=== PATIENT | female | born 2000 | race Caucasian/White ===

== ENCOUNTER 2020-01-21 22:36 | Emergency (ER) | payer MEDICAID ==
[2020-01-21] MEDS ORDERED: Acetaminophen 500 MG Tab PO ONE (23:21)
--- NOTE | 2020-01-22 00:59 | CR ---
Indication: Right-sided chest pain Technique: Chest 1 view Comparison: None Findings/Impression: Cardiovascular and mediastinum: Heart size and vasculature are normal in caliber and appearance. Lungs and pleural space: Lungs are clear. No sign of infiltrate or mass. No sign of pleural effusion. No pneumothorax. Bones and soft tissues: No acute findings. Dictated by Jimy Burrell MD @ Jan 22 2020 12:56AM Signed by Dr. Jimy Burrell @ Jan 22 2020 12:57AM
--- NOTE | 2020-01-22 01:03 | EDM.PDOC ---
ED HPI GENERAL MEDICAL PROBLEM - General Chief Complaint: Chest Pain Stated Complaint: CHEST PAIN Time Seen by Provider: 01/21/20 23:54 - History of Present Illness INITIAL COMMENTS - FREE TEXT/NARRATIVE: CHIEF COMPLAINT(S): Chest pain HISTORY OF PRESENT ILLNESS: This is a 19-year-old woman without any significant past medical history who is approximately 18 weeks who comes to the emergency department with a chief complaint of chest pain. The patient states that the chest pain is located on the right side of her chest in the upper region and radiates to her armpit. She describes the pain as 4 out of 10 and achy in nature. She denies any radiation of this pain to her back or other side of her chest. She denies any associated symptoms such as shortness of breath, diaphoresis or nausea. She states the pain is worse with movement. She denies any rash. She denies any nipple discharge. She states that she did take some Tylenol at home which did not improve the pain. She states that her mother told her to come into the emergency department. In regards to her she is approximately 18 weeks and has been seen by an bisque kiln drawer. She denies any vaginal bleeding, dysuria, abdominal pain. She denies any recent travel, recent surgery, prior history of DVT or PE. REVIEW OF SYSTEMS: Constitutional: Denies fever, chills. Eyes: Denies eye pain Ears, Nose, Mouth, & Throat: Denies earache Cardiovascular: Positive for chest pain Respiratory: Denies shortness of breath Gastrointestinal: Denies Nausea, vomiting, diarrhea, hematochezia. Genitourinary: Denies hematuria Skin:Denies a rash Neurological: Denies blurred vision, numbness, tingling, weakness Psychiatric: Denies depression PAST MEDICAL HISTORY: As per history of present illness and as reviewed below otherwise noncontributory. SURGICAL HISTORY: As per history of present illness and as reviewed below otherwise noncontributory. LMP: Approximately 18 weeks ago SOCIAL HISTORY: As per history of present illness and as reviewed below otherwise noncontributory. FAMILY HISTORY: As per history of present illness and as reviewed below otherwise noncontributory. EXAMINATION OF ORGAN SYSTEMS/BODY AREAS: Constitutional: Blood pressure was 107/64, heart rate 78, respiratory rate 16 with an oxygen saturation of 97% on room air. Temperature 36.4 General: Overall well-appearing woman who is in no acute distress Psychiatric: Appropriate mood and affect. Eyes: No scleral icterus or conjunctival erythema ENMT: Moist mucous membranes. No pharyngeal erythema Cardiovascular: Regular, rate, and rythym. No gallops, murmurs, or rubs. Bilateral upper extremity pulses symmetric and intact. No peripheral edema. No JVD. Breast: Breast examination was performed with KIMBERLY Yin. The patient had tenderness to palpation in her upper right chest wall and lateral side of her breast. There was no drainage from the nipple no overlying cellulitis. Patient did have cystic breast but there was no obvious fluctuance or area of abscess. Respiratory: Lungs clear to auscultation bilaterally. No wheezes, rales, or rhonchi. Gastrointestinal: Soft, non-tender, non-distended. Normoactive bowel sounds Genitourinary: No suprapubic tenderness Musculoskeletal: Normal range of motion. Skin: No lesions or abrasions. Neurological: Alert, GCS 15 MEDICAL DECISION MAKING AND COURSE IN THE ED WITH INTERPRETATION/REVIEW OF DIAGNOSTIC STUDIES: This is a 19-year-old woman who is approximately 18 weeks who comes to the emergency department with right upper chest wall pain who overall appears well. At this time I do suspect that this is probably secondary to breast changes during . There is no evidence of infection. We did obtain a screening EKG which did not reveal any acute signs of ischemia. Will obtain a chest x-ray to evaluate for any signs of pneumonia. Patient did take Tylenol prior to arrival and requested no additional pain medication. I did discuss with her at this time that this could be secondary to musculoskeletal strain versus -induced breast changes. I discussed the use of a heating pad to the area and the use of Tylenol for pain relief. She did express understanding. Twelve-lead EKG interpreted by myself. Normal sinus rhythm at a rate of 77beats per minute. Normal axis. [place] interval is 156ms. QRS duration is 86ms. ST segments are normal without elevations or depressions. No Q waves present. Hypertrophy not noted. No prior EKGs in our system. Interpretation: Normal sinus rhythm The radiological images were viewed by myself along with reading the report from the radiologist. Chest x-ray does not reveal an acute cardiopulmonary process PERC Rule Age (>/=50): No (0) HR (>/=100): No (0) SaO2 on RA <95%: No (0) Unilateral Leg Swelling: No (0) Hemoptysis: No (0) Surgery/Trauma in last month requiring general anesthesia: No (0) Prior PE or DVT: : No (0) Hormone Use: No (0) PERC negative Since patient is PERC negative and pre-test probability <15%, there is no need for more intensive workup, <2% chance of PE At this time I did discuss results with the patient. She is stable for discharge. She is to return for any new or worsening symptoms. DISPOSITION: The patient was discharged home in stable condition. The patient will follow up with primary care physician and bisque kiln drawer. CONDITION: Fair PROCEDURES: None FINAL IMPRESSION(S)/DIAGNOSES: 1. Acute atypical chest pain likely musculoskeletal versus breast changes during Poli Olsen M.D. Right Upper Chest Pain Score (Numeric/FACES): 8 - Related Data Allergies Allergy/AdvReac Type Severity Reaction Status Date / Time Sulfa (Sulfonamide Allergy Hives Verified 01/21/20 22:49 Antibiotics) Home Meds: Home Meds Acetaminophen [Tylenol Extra Strength] 1,000 mg PO 01/21/20 [History] Pnv No.103/Folic/Om3s/Fish Oil [ Gummies] DAILY 01/21/20 [History] Past Medical History - Past Health History Medical/Surgical History: Denies Medical/Surgical History Social & Family History - Tobacco Use Tobacco Use Status *Q: Never Tobacco User Second Hand Smoke Exposure: Yes - Caffeine Use Caffeine Use: Reports: Coffee, Soda - Recreational Drug Use Recreational Drug Use: No ED ROS GENERAL - Review of Systems Review Of Systems: See Below ED EXAM, GENERAL - Physical Exam Exam: See Below Course - Vital Signs Last Recorded V/S: Last Vital Signs Temp 36.4 C 01/21/20 22:47 Pulse 84 01/22/20 01:30 Resp 18 01/22/20 01:30 BP 106/54 L 01/22/20 01:30 Pulse Ox 99 01/22/20 01:30 - Orders/Labs/Meds Meds: Medications Discontinued Medications Generic Name Dose Route Start Last Admin Trade Name Freq PRN Reason Stop Dose Admin Acetaminophen 1,000 mg 01/21/20 23:21 01/21/20 23:53 Tylenol Extra Strength PO 01/21/20 23:22 Not Given ONETIME ONE Departure - Departure Time of Disposition: 01:02 Disposition: Home, Self-Care 01 Condition: Fair Clinical Impression: Atypical chest pain - Discharge Information *PRESCRIPTION DRUG MONITORING PROGRAM REVIEWED*: No *COPY OF PRESCRIPTION DRUG MONITORING REPORT IN PATIENT HANS: No Instructions: Nonspecific Chest Pain, Adult, [id number] Referrals: Stephanie Schroeder CNM [Primary Care Provider] - Forms: ED Department Discharge Additional Instructions: The patient is informed of any results of their evaluation and diagnostic workup and all questions are answered. They are given discharge instructions and return precautions. The patient is stable for discharge. The patient states they understand and agree with the plan and that they will return if their symptoms get worse or if they have any new concerns. The following information is given to patients seen in the emergency department who are being discharged to home. This information is to outline your options for follow-up care. We provide all patients seen in our emergency department with a follow-up referral. The need for follow-up, as well as the timing and circumstances, are variable depending upon the specifics of your emergency department visit. If you don't have a primary care physician on staff, we will provide you with a referral. We always advise you to contact your personal physician following an emergency department visit to inform them of the circumstance of the visit and for follow-up with them and/or the need for any referrals to a consulting specialist. The emergency department will also refer you to a specialist when appropriate. This referral assures that you have the opportunity for follow-up care with a specialist. All of these measure are taken in an effort to provide you with optimal care, which includes your follow-up. Under all circumstances we always encourage you to contact your private physician who remains a resource for coordinating your care. When calling for follow-up care, please make the office aware that this follow-up is from your recent emergency room visit. If for any reason you are refused follow-up, please contact the [facility] Emergency Department at and asked to speak to the emergency department charge nurse. PLEASE USE HEATING PAD TO AFFECTED AREA NEEDED. RETURN IF ANY WORSENING SYMPTOMS. PLEASE KEEP YOUR APPOINTMENT WITH YOUR OB DOCTOR Sepsis Event Note (ED) - Evaluation Sepsis Screening Result: No Definite Risk - Focused Exam Vital Signs: Vital Signs Temp Pulse Resp BP Pulse Ox 01/22/20 01:30 84 18 106/54 L 99 01/22/20 01:03 64 18 96/54 L 97 01/21/20 22:47 36.4 C 79 16 107/64 97
== END 2020-01-22 01:30 | disposition home or self-care (01) ==
LOC: MW.ED 22:36
DX: O99.891 Other specified diseases and conditions complicating pregnancy (principal); R07.89 Other chest pain; Z88.2 Allergy status to sulfonamides; Z77.22 Contact with and (suspected) exposure to environmental tobacco smoke (acute) (chronic); Z3A.18 18 weeks gestation of pregnancy
CPT/HCPCS: 71045; 71045-26; 93005; 93010; 99283; 99285-25

== ENCOUNTER 2021-01-06 09:56 | Emergency (ER) | payer MEDICAID ==
--- NOTE | 2021-01-06 10:15 | PCM.EKG ---
#1 Interpretation EKG Date: 01/06/21 Time: 09:58 Rhythm: NSR Rate (Beats/Min): 67 [place]: Normal P-Wave: Present QRS: Normal ST-T: Normal QT: Normal [place]/PQ Interval: 161 Comparison: NA - No Prior EKG EKG Interpretation Comments: normal EKG
[2021-01-06] MEDS ORDERED: Ketorolac 60 MG/2 ML SDV IM ONE (11:18)
[2021-01-06 11:21] LABS: BLOOD UREA NITROGEN,BUN 10 mg/dL (7.0-18.0); CARBON DIOXIDE,CO2 27.5 mmol/L (21.0-32.0); CHLORIDE,CL 104 mmol/L (98-107); GLUCOSE RANDOM 91 mg/dL (74-106); LIPASE 115 U/L (73-393); POTASSIUM,K 3.8 mmol/L (3.5-5.1); SODIUM,NA 141 mmol/L (136-145)
--- NOTE | 2021-01-06 11:34 | EDM.PDOC ---
ED HPI GENERAL MEDICAL PROBLEM - General Chief Complaint: Chest Pain Stated Complaint: chest pains Time Seen by Provider: 01/06/21 09:59 Source of Information: Reports: Patient History Limitations: Reports: No Limitations - History of Present Illness INITIAL COMMENTS - FREE TEXT/NARRATIVE: HISTORY AND PHYSICAL: History of present illness: Patient is a 20-year-old female resents emergency room today with concern of midsternal chest pain that has been ongoing for the past 3 days with the worst of it being yesterday. Patient states the pain is worse when she tries to bend over or lift and move things and states that yesterday she was trying to unfold the stroller and states that she had so much pain her friend had to help her. Patient states that this is nonexertional and tends to be more with lifting and moving or pressing on her midsternum. Patient states that she has had the same chest pain before on and off over the past 4 years and has had this evaluated before including x-rays and CT scans looking for blood clots that she was told was normal. Patient denies any trauma or injury. Patient states that she does take a deep breath it does hurt her mid sternum. Patient denies any other symptoms or concerns. Patient denies fever, chills, shortness of breath, or cough. Denies headache, neck stiff ness, change in vision, syncope, or near syncope. Denies nausea, vomiting, abdominal pain, diarrhea, constipation, or dysuria. Has not noted any blood in urine or stool. Patient has been eating and drinking appropriately. Review of systems: As per history of present illness and below otherwise all systems reviewed and negative. Past medical history: As per history of present illness and as reviewed below otherwise noncontributory. Surgical history: As per history of present illness and as reviewed below otherwise noncontributory. Social history: See social history for further information Family history: As per history of present illness and as reviewed below otherwise noncontributory. Physical exam: General: Patient is alert, oriented, and in no acute distress. Patient sitting comfortably on exam table. Vitals stable and reviewed by me. HEENT: Atraumatic, normocephalic, pupils equal and reactive bilaterally, negative for conjunctival pallor or scleral icterus, mucous membranes moist, TMs normal bilaterally, throat clear, neck supple, nontender, trachea midline. No drooling or trismus noted. No meningeal signs. No hot potato voice noted. Lungs: Patient does have recreation of her symptoms with palpation of the sternum from the mid to the inferior portion without evidence of overlying redness, ecchymosis, crepitus, or lesions/rashes. Otherwise, clear to auscultation, breath sounds equal bilaterally. Heart: S1S2, regular rate and rhythm without overt murmur Abdomen: Soft, nondistended, nontender. Negative for masses or hepatosplenomegaly. Negative for costovertebral tenderness. Pelvis: Stable nontender. Genitourinary: Deferred. Rectal: Deferred. Skin: Intact, warm, dry. No lesions or rashes noted. Extremities: Atraumatic, negative for cords or calf pain. Neurovascular unremarkable. Neuro: Awake, alert, oriented. Cranial nerves II through XII unremarkable. Cerebellum unremarkable. Motor and sensory unremarkable throughout. Exam nonfocal. Notes: Patient is a 20-year-old female who presents emergency room today with concern of chest pain x3 days with similar episodes on and off for the past 4 years. Upon arrival to the ED, patient is vitally stable and well-appearing on exam. Patient does have palpable chest wall/sternum pain on exam. However, will obtain cardiac evaluation at this time, provide therapeutics and reassess patient. See Dr. Abrams's dictation for specific EKG interpretation. However, normal sinus rhythm without STEMI or acute changes. Mild derangements of lab work today unremarkable. Troponin negative. hCG negative. Chest x-ray unremarkable. Upon reevaluation of patient, she has improvement of her symptoms with therapeutics given today in the emergency room. Strict return precautions thoroughly discussed with patient. Discussed importance for follow-up with a primary care provider. Voices understanding and is agreeable to plan of care. Denies any further questions or concerns at this time. Diagnostics: EKG, CBC, CMP, chest x-ray, troponin, hCG, lipase Therapeutics: Toradol Prescription: None Impression: Atypical chest pain Plan: 1. You can alternate ibuprofen and Tylenol as directed for pain and discomfort. 2. Follow-up with a primary care provider as discussed. Return to the ED as needed and as discussed. Definitive disposition and diagnosis as appropriate pending reevaluation and review of above. chest Pain Score (Numeric/FACES): 8 - Related Data Allergies Allergy/AdvReac Type Severity Reaction Status Date / Time Sulfa (Sulfonamide Allergy Hives Verified 01/21/20 22:49 Antibiotics) Home Meds: Home Meds Acetaminophen [Tylenol Extra Strength] 1,000 mg PO 01/21/20 [History] Pnv No.103/Folic/Om3s/Fish Oil [ Gummies] DAILY 01/21/20 [History] Past Medical History - Past Health History Medical/Surgical History: Denies Medical/Surgical History [employer] History: Reports: - Infectious Disease History Infectious Disease History: Reports: None - Past Surgical History Other HEENT Surgeries/Procedures: Dental Social & Family History - Family History Family Medical History: Unobtainable - Tobacco Use Tobacco Use Status *Q: Former Tobacco User Used Tobacco, but Quit: Yes Month/Year Tobacco Last Used: 4 - Caffeine Use Caffeine Use: Reports: Coffee, Soda - Recreational Drug Use Recreational Drug Use: No ED ROS GENERAL - Review of Systems Review Of Systems: Comprehensive ROS is negative, except as noted in HPI. ED EXAM, GENERAL - Physical Exam Exam: See Below (see dictation) Course - Vital Signs Last Recorded V/S: Last Vital Signs Temp 97.0 F 01/06/21 12:07 Pulse 61 01/06/21 12:07 Resp 16 01/06/21 12:07 BP 103/61 01/06/21 12:07 Pulse Ox 98 01/06/21 12:07 - Orders/Labs/Meds Labs: Laboratory Tests 01/06/21 01/06/21 01/06/21 Range/Units 10:45 10:45 10:45 WBC 5.01 (4.0-11.0) K/uL RBC 4.62 (4.30-5.90) M/uL Hgb 13.5 (12.0-16.0) g/dL Hct 40.6 (36.0-46.0) % MCV 87.9 (80.0-98.0) fL MCH 29.2 (27.0-32.0) pg MCHC 33.3 (31.0-37.0) g/dL RDW Std Deviation 42.9 (28.0-62.0) fl RDW Coeff of Mayi 14 (11.0-15.0) % Plt Count 232 (150-400) K/uL MPV 10.20 (7.40-12.00) fL Neut % (Auto) 53.9 (48.0-80.0) % Lymph % (Auto) 35.3 (16.0-40.0) % [place] % (Auto) 6.4 (0.0-15.0) % Eos % (Auto) 4.2 (0.0-7.0) % Baso % (Auto) 0.2 (0.0-1.5) % Neut # (Auto) 2.7 (1.4-5.7) K/uL Lymph # (Auto) 1.8 (0.6-2.4) K/uL [place] # (Auto) 0.3 (0.0-0.8) K/uL Eos # (Auto) 0.2 (0.0-0.7) K/uL Baso # (Auto) 0.0 (0.0-0.1) K/uL Nucleated RBC % 0.0 /100WBC Nucleated RBCs # 0 K/uL Sodium 141 (136-145) mmol/L Potassium 3.8 (3.5-5.1) mmol/L Chloride 104 (98-107) mmol/L Carbon Dioxide 27.5 (21.0-32.0) mmol/L BUN 10 (7.0-18.0) mg/dL Creatinine 0.8 (0.6-1.0) mg/dL Est Cr Clr Drug Dosing 99.25 mL/min Estimated GFR (MDRD) > 60.0 ml/min Glucose 91 (74-106) mg/dL Calcium 8.3 L (8.5-10.1) mg/dL Total Bilirubin 0.6 (0.2-1.0) mg/dL AST 12 L (15-37) IU/L ALT 22 (14-63) IU/L Alkaline Phosphatase 68 (46-116) U/L Troponin I < 0.050 (0.000-0.056) ng/mL Total Protein 7.0 (6.4-8.2) g/dL Albumin 3.7 (3.4-5.0) g/dL Globulin 3.3 (2.6-4.0) g/dL Albumin/Globulin Ratio 1.1 (0.9-1.6) Lipase 115 (73-393) U/L HCG, Qual NEGATIVE (NEG) Meds: Medications Discontinued Medications Generic Name Dose Route Start Last Admin Trade Name Jb PRN Reason Stop Dose Admin Ketorolac Tromethamine 60 mg 01/06/21 11:18 01/06/21 12:08 Ketorolac 60 Mg/2 Ml Sdv IM 01/06/21 11:19 60 mg ONETIME ONE Administration Departure - Departure Time of Disposition: 11:50 Disposition: Home, Self-Care 01 Clinical Impression: Atypical chest pain - Discharge Information Instructions: Chest Wall Pain, [id number] Referrals: PCP,None [Primary Care Provider] - Forms: ED Department Discharge Additional Instructions: The following information is given to patients seen in the emergency department who are being discharged to home. This information is to outline your options for follow-up care. We provide all patients seen in our emergency department with a follow-up referral. The need for follow-up, as well as the timing and circumstances, are variable depending upon the specifics of your emergency department visit. If you don't have a primary care physician on staff, we will provide you with a referral. We always advise you to contact your personal physician following an emergency department visit to inform them of the circumstance of the visit and for follow-up with them and/or the need for any referrals to a consulting specialist. The emergency department will also refer you to a specialist when appropriate. This referral assures that you have the opportunity for follow-up care with a specialist. All of these measure are taken in an effort to provide you with optimal care, which includes your follow-up. Under all circumstances we always encourage you to contact your private physician who remains a resource for coordinating your care. When calling for follow-up care, please make the office aware that this follow-up is from your recent emergency room visit. If for any reason you are refused follow-up, please contact the [facility] Emergency Department at and asked to speak to the emergency department charge nurse. [facility] [address] [place] [id number] [address] 1. You can alternate ibuprofen and Tylenol as directed for pain and discomfort. 2. Follow-up with primary care provider as discussed return to ED as needed and as discussed. Sepsis Event Note (ED) - Evaluation Sepsis Screening Result: No Definite Risk - Focused Exam Vital Signs: Vital Signs Temp Pulse Resp BP Pulse Ox 01/06/21 12:07 97.0 F 61 16 103/61 98 01/06/21 10:05 97.4 F 72 16 104/61 98
--- NOTE | 2021-01-06 11:47 | CR ---
INDICATION: Shortness of breath TECHNIQUE: Single view chest. FINDINGS: The lungs are clear. The heart, mediastinum and pulmonary vessels are of normal size. There is no evidence of pleural disease. IMPRESSION: Negative chest. Dictated by Kelli Stokes MD @ 01/06/2021 11:46:51 AM (Electronically Signed)
== END 2021-01-06 12:18 | disposition home or self-care (01) ==
LOC: MW.ED 09:56
DX: R07.89 Other chest pain (principal); Z88.2 Allergy status to sulfonamides; Z87.891 Personal history of nicotine dependence
CPT/HCPCS: 36415; 71045; 80053; 83690; 84484; 84703; 85025; 93005; 96372; 99285; J1885

== ENCOUNTER 2021-01-15 22:22 | Emergency (ER) | payer MEDICAID ==
[2021-01-16] MEDS ORDERED: Ketorolac 30 MG/ML SDV IM STA (00:02)
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
--- NOTE | 2021-01-16 00:09 | CR ---
Indication: Knee pain Technique: Three views Comparison: None Findings: Bones: Alignment is normal. No fractures or bone lesions. Joint spaces: Unremarkable. Soft tissues: Unremarkable. Dictated by Jimy Burrell MD @ 01/16/2021 12:06:40 AM (Electronically Signed)
== END 2021-01-16 01:07 | disposition home or self-care (01) ==
LOC: MW.ED 22:22
DX: M25.461 Effusion, right knee (principal); Z88.2 Allergy status to sulfonamides
CPT/HCPCS: 73562; 96372; 99283; J1885

== ENCOUNTER 2021-01-25 20:39 | Emergency (ER) | payer MEDICAID ==
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
== END 2021-01-25 22:19 | disposition home or self-care (01) ==
LOC: MW.ED 20:39
DX: M25.561 Pain in right knee (principal); Z88.2 Allergy status to sulfonamides
CPT/HCPCS: 99283

== ENCOUNTER 2021-04-24 14:22 | Emergency (ER) | payer MEDICAID | END 2021-04-24 16:37 | disposition home or self-care (01) | LOC: MW.ED 14:22 | DX: O99.511 Diseases of the respiratory system complicating pregnancy, first trimester (principal); B34.9 Viral infection, unspecified; Z88.2 Allergy status to sulfonamides; Z3A.14 14 weeks gestation of pregnancy; Z20.822 Contact with and (suspected) exposure to COVID-19 | CPT/HCPCS: 87651-QW; 87804; 99283; U0002 ==

== ENCOUNTER 2021-05-01 19:19 | Emergency (ER) | payer MEDICAID ==
[2021-05-01] MEDS ORDERED: Sodium Chloride 0.9% 1,000 ML IV ONE (19:56)
[2021-05-01] MEDS ORDERED: Acetaminophen 500 MG Tab PO ONE (19:56)
[2021-05-01 21:27] LABS: BLOOD UREA NITROGEN,BUN 7 mg/dL (7.0-18.0); CARBON DIOXIDE,CO2 24.2 mmol/L (21.0-32.0); CHLORIDE,CL 102 mmol/L (98-107); GLUCOSE RANDOM 83 mg/dL (74-106); SODIUM,NA 136 mmol/L (136-145)
== END 2021-05-01 22:13 | disposition home or self-care (01) ==
LOC: MW.ED 19:19
DX: O99.891 Other specified diseases and conditions complicating pregnancy (principal); R10.9 Unspecified abdominal pain; Z3A.15 15 weeks gestation of pregnancy; Z88.2 Allergy status to sulfonamides
CPT/HCPCS: 36415; 80053; 81001; 84702; 84703; 85025; 99284; A9270; J7030

== ENCOUNTER 2021-05-12 15:23 | Emergency (ER) | payer MEDICAID ==
[2021-05-12] MEDS ORDERED: Ondansetron 4 MG Tab.DIS PO ONE (16:12)
[2021-05-12] MEDS ORDERED: Acetaminophen 500 MG Tab PO ONE (16:12)
[2021-05-12] MEDS ORDERED: Meclizine 25 MG Tab PO ONE (16:12)
== END 2021-05-12 17:24 | disposition home or self-care (01) ==
LOC: MW.ED 15:23
DX: O9A.23 Injury, poisoning and certain other consequences of external causes complicating the puerperium (principal); S06.0X0A Concussion without loss of consciousness, initial encounter; Z3A.16 16 weeks gestation of pregnancy; Z88.2 Allergy status to sulfonamides; W00.0XXA Fall on same level due to ice and snow, initial encounter
CPT/HCPCS: 99283; A9270

== ENCOUNTER 2021-10-14 12:44 | Inpatient (IN) | payer MEDICAID ==
[2021-10-14] MEDS ORDERED: Misoprostol 200 MCG Tab PO PRN (20:25)
[2021-10-14] MEDS ORDERED: Ondansetron 4 MG/2 ML SDV IVPUSH PRN (20:25)
[2021-10-14] MEDS ORDERED: Methylergonovine 0.2 MG/1 ML Amp IM PRN (20:25)
[2021-10-14] MEDS ORDERED: Sodium Chloride 0.9% 2.5 ML Syringe FLUSH PRN (20:25)
[2021-10-14] MEDS ORDERED: Butorphanol 1 MG/ML SDV IVPUSH PRN (20:25)
[2021-10-14] MEDS ORDERED: Lidocaine 1% 50 ML MDV INJECT PRN (20:25)
[2021-10-14] MEDS ORDERED: Sodium Chloride 0.9% 20 ML SDV IV PRN (20:25)
[2021-10-14] MEDS ORDERED: Water For Irrigation,Sterile 1,000 ML Container IRR PRN (20:25)
[2021-10-14] MEDS ORDERED: Carboprost Tromethamine 250 MCG/1 ML Amp IM PRN (20:25)
[2021-10-14] MEDS ORDERED: Acetaminophen 500 MG Tab PO ONE (20:25)
[2021-10-14] MEDS ORDERED: Tranexamic Acid 1,000 MG in Sodium Chloride 0.9% 100 ML IV PRN (20:25)
[2021-10-14] MEDS ORDERED: Sodium Chloride 0.9% 10 ML Syringe FLUSH PRN (20:25)
[2021-10-14] MEDS ORDERED: Terbutaline 1 MG/ML SDV SUBCUT PRN (20:25)
[2021-10-14] MEDS ORDERED: Oxytocin/0.9 % Sodium Chloride 30 UNIT/500 ML BAG IV SCH ×2 (20:30)
[2021-10-14] MEDS: Lactated Ringers 1,000 ML IV SCH ×2 (20:54→21:41)
[2021-10-14] MEDS ORDERED: ePHEDrine 50 MG/ML SDV IVPUSH PRN (21:53)
[2021-10-14] MEDS ORDERED: ePHEDrine 50 MG/ML SDV ONE (21:57)
[2021-10-14] MEDS ORDERED: Bupivacaine 0.5% 10 ML SDV ONE (21:57)
[2021-10-14] MEDS ORDERED: Ropivacaine HCl/PF 400 MG in Premix Bag 1 BAG EPIDUR SCH (22:00)
[2021-10-15] MEDS ORDERED: Lanolin 100% Cream 7 GM Tube TOP PRN (00:13)
[2021-10-15] MEDS ORDERED: Acetaminophen 500 MG Tab PO PRN (00:13)
[2021-10-15] MEDS ORDERED: oxyCODONE 5 MG Tab PO PRN (00:13)
[2021-10-15] MEDS ORDERED: Bisacodyl 10 MG Supp RECTAL PRN (00:13)
[2021-10-15] MEDS ORDERED: Benzocaine/Menthol 20%-0.5% Spray 78 GM Cannister TOP PRN (00:13)
[2021-10-15] MEDS ORDERED: Ibuprofen 400 MG Tab PO PRN (00:13)
[2021-10-15] MEDS: Ibuprofen 800 MG Tab PO PRN ×3 (00:51→13:59)
[2021-10-15] MEDS: Witch Hazel Medicated Pads 40/Jar TOP PRN (00:52)
[2021-10-15] MEDS: Docusate Sodium 100 MG Cap PO PRN (08:03)
[2021-10-15] MEDS: Acetaminophen 500 MG Tab PO PRN (19:49)
[2021-10-16] MEDS: Ibuprofen 800 MG Tab PO PRN (02:08)
[2021-10-16] MEDS: Acetaminophen 500 MG Tab PO PRN ×2 (06:00→09:51)
[2021-10-16] MEDS: Docusate Sodium 100 MG Cap PO PRN (06:01)
[2021-10-16] MEDS: Witch Hazel Medicated Pads 40/Jar TOP PRN (13:09)
== END 2021-10-16 13:18 | disposition home or self-care (01) | DRG 807 ==
LOC: MW.OBCHECK 12:44 → MW.OB 12:46 → MW.OBCHECK 14:00 → MW.OB 20:25 → OBSVTOIN 23:52 → MW.OB 10-15 02:41
PROVIDERS: ADMIT Obstetrics & Gynecology; ATTEND Obstetrics & Gynecology
PROC: 10E0XZZ Delivery of Products of Conception, External Approach (ICD-10-PCS; principal; 2021-10-14)
PROC: 3E0R3BZ Introduction of Anesthetic Agent into Spinal Canal, Percutaneous Approach (ICD-10-PCS; 2021-10-14)
DX: O36.8130 Decreased fetal movements, third trimester, not applicable or unspecified (principal); Z37.0 Single live birth; Z3A.38 38 weeks gestation of pregnancy; Z20.822 Contact with and (suspected) exposure to COVID-19
CPT/HCPCS: 01967; 36415; 59025; 59409; 76819; 76819-26; 82803; 84112; 85014; 85018; 85027; 86592; 86850; 86900; 86901; A9270-GY; J2370; J2405; J2590; J2795; J3490; J7120; U0002

== ENCOUNTER 2021-11-15 11:57 | Emergency (ER) | payer MEDICAID ==
[2021-11-15] MEDS ORDERED: Sodium Chloride 0.9% 10 ML Syringe FLUSH PRN (14:53)
[2021-11-15] MEDS ORDERED: Sodium Chloride 0.9% 2.5 ML Syringe FLUSH PRN (14:53)
[2021-11-15 15:50] LABS: POTASSIUM,K 3.9 mmol/L (3.5-5.1)
[2021-11-15] MEDS ORDERED: Lidocaine 1% with EPINEPHrine 1:100,000 10 ML MDV INJECT ONE ×2 (17:44)
[2021-11-15] MEDS ORDERED: Lidocaine 1% 5 ML VIAL INJECT ONE ×3 (20:20→20:21)
[2021-11-15] MEDS ORDERED: Iopamidol 755 MG/ML 500 ML Multipack Bottle IVPUSH ONE (20:22)
== END 2021-11-15 21:42 | disposition home or self-care (01) ==
LOC: MW.ED 11:57
DX: L02.212 Cutaneous abscess of back [any part, except buttock and flank] (principal); L03.312 Cellulitis of back [any part except buttock and flank]; Z88.2 Allergy status to sulfonamides
CPT/HCPCS: 10060; 36415; 72129; 80048; 84703; 85025; 87070; 87205; 99283; Q9967

== ENCOUNTER 2021-11-16 18:10 | Emergency (ER) | payer MEDICAID | END 2021-11-16 19:33 | disposition left against medical advice (07) | LOC: MW.ED 18:10 | DX: Z53.21 Procedure and treatment not carried out due to patient leaving prior to being seen by health care provider (principal) ==

== ENCOUNTER 2021-11-17 08:58 | Emergency (ER) | payer MEDICAID | END 2021-11-17 10:35 | disposition home or self-care (01) | LOC: MW.ED 08:58 | DX: J86.9 Pyothorax without fistula (principal); Z88.2 Allergy status to sulfonamides | CPT/HCPCS: 99282 ==

== ENCOUNTER 2022-06-30 07:48 | Day surgery (SDC) | payer MEDICAID ==
[~2022-06-30 07:48] MED LIST: Lactated Ringers 1,000 ML IV SCH; cefOXitin 2 GM in Premix Bag 1 BAG IV ONE
[2022-06-30] MEDS ORDERED: Bupivacaine 0.5% 10 ML SDV ONE (08:17)
[2022-06-30] MEDS ORDERED: ceFAZolin 1 GM Vial ONE (08:18)
[2022-06-30] MEDS ORDERED: Naloxone 0.4 MG/ML SDV IVPUSH PRN (08:31)
[2022-06-30] MEDS ORDERED: Ondansetron 4 MG/2 ML SDV IVPUSH PRN (08:31)
[2022-06-30] MEDS ORDERED: Albuterol 0.083% 2.5 MG/3 ML Neb Soln NEB PRN (08:31)
[2022-06-30] MEDS ORDERED: HYDROmorphone 1 MG/ML Syringe IVPUSH PRN (08:31)
[2022-06-30] MEDS ORDERED: Morphine 2 MG/ML SYRINGE IVPUSH PRN (08:31)
[2022-06-30] MEDS ORDERED: fentaNYL 50 MCG/ML SDV IVPUSH PRN (08:31)
[2022-06-30] MEDS ORDERED: Metoclopramide 10 MG/2 ML SDV IVPUSH PRN (08:31)
[2022-06-30] MEDS ORDERED: Propofol 200 MG/20 ML SDV ONE ×2 (08:34→10:58)
[2022-06-30] MEDS ORDERED: fentaNYL 250 MCG/5 ML SDV ONE (08:34)
[2022-06-30] MEDS ORDERED: Famotidine 20 MG/2 ML SDV ONE (08:40)
[2022-06-30] MEDS ORDERED: Ropivacaine 0.5% 5 MG/ML 30 ML SDV ONE (08:40)
[2022-06-30] MEDS ORDERED: fentaNYL 100 MCG/2 ML SDV ONE ×3 (08:42→10:41)
[2022-06-30] MEDS ORDERED: Water For Injection, Sterile 60 ML ONE (08:46)
[2022-06-30] MEDS ORDERED: cefOXitin 1 GM Vial ONE (10:26)
[2022-06-30] MEDS ORDERED: Sugammadex Sodium 200 MG/2 ML VIAL ONE (10:27)
[2022-06-30] MEDS ORDERED: Dexamethasone 4 MG/ML 5 ML MDV ONE (10:27)
[2022-06-30] MEDS ORDERED: Ketorolac 30 MG/ML SDV ONE (10:27)
[2022-06-30] MEDS ORDERED: Rocuronium Bromide 50 MG/5 ML Syringe ONE (10:27)
[2022-06-30] MEDS ORDERED: Ondansetron 4 MG/2 ML SDV ONE ×2 (10:27→11:07)
[2022-06-30] MEDS ORDERED: Acetaminophen/HYDROcodone 325-5 MG Tab PO PRN (11:49)
[2022-06-30] MEDS ORDERED: Morphine 4 MG/ML Syringe IVPUSH PRN (11:49)
[2022-06-30] MEDS ORDERED: Lactated Ringers 1,000 ML IV SCH (12:00)
== END 2022-06-30 13:40 | disposition home or self-care (01) ==
LOC: MW.SDS 07:48
PROVIDERS: ATTEND Surgery
DX: K80.10 Calculus of gallbladder with chronic cholecystitis without obstruction (principal); F32.A Depression, unspecified; F41.9 Anxiety disorder, unspecified; K90.49 Malabsorption due to intolerance, not elsewhere classified; Z88.1 Allergy status to other antibiotic agents; Z88.2 Allergy status to sulfonamides; Z83.79 Family history of other diseases of the digestive system; Z87.891 Personal history of nicotine dependence
CPT/HCPCS: 47562; 81025; J0131; J0690; J0694; J1100; J1885; J2405; J2704; J2795; J3010; J3490; J7030; J7120; 00790; 64488

== ENCOUNTER 2022-12-18 21:08 | Emergency (ER) | payer SELFPAY ==
[2022-12-19] MEDS ORDERED: Lidocaine 1% 5 ML VIAL INJECT ONE (02:32)
== END 2022-12-19 03:36 | disposition home or self-care (01) ==
LOC: MW.ED 21:08
DX: L02.511 Cutaneous abscess of right hand (principal); Z88.2 Allergy status to sulfonamides
CPT/HCPCS: 10060; 99282; 99283; J3490

== ENCOUNTER 2023-08-25 10:41 | Emergency (ER) | payer OTHER, MEDICAID | END 2023-08-25 12:10 | disposition home or self-care (01) | LOC: MW.ED 10:41 | DX: S83.92XA Sprain of unspecified site of left knee, initial encounter (principal); Z88.2 Allergy status to sulfonamides; Z88.8 Allergy status to other drugs, medicaments and biological substances; Z75.8 Other problems related to medical facilities and other health care; V89.0XXA Person injured in unspecified motor-vehicle accident, nontraffic, initial encounter | CPT/HCPCS: 73562-26-LT; 73562-LT; 99283; 99284 ==

== ENCOUNTER 2025-02-25 11:13 | Emergency (ER) | payer MEDICAID ==
[2025-02-25] MEDS ORDERED: Sodium Chloride 0.9% 2.5 ML Syringe FLUSH PRN (11:38)
[2025-02-25] MEDS ORDERED: Sodium Chloride 0.9% 10 ML Syringe FLUSH PRN (11:38)
[2025-02-25 11:44] LABS: BASOPHILS ABSOLUTE AUTO 0.03 K/uL (0.00-0.20); BASOPHILS PERCENT AUTO 0.4 % (0.0-1.0); EOSINOPHILS ABSOLUTE AUTO 0.42 K/uL (0.00-0.45); EOSINOPHILS PERCENT AUTO 5.6 % (0.0-6.0); IMMATURE GRAN ABSOLUTE AUTO 0.02 K/uL (0.00-0.05); IMMATURE GRAN PERCENT AUTO 0.3 % (0.0-0.4); LYMPHOCYTES ABSOLUTE AUTO 2.18 K/uL (1.00-4.80); LYMPHOCYTES PERCENT AUTO 29.1 % (24.0-44.0); MEAN PLATELET VOLUME 10.0 fL (9.4-12.3); MONOCYTES ABSOLUTE AUTO 0.31 K/uL (0.00-0.80); MONOCYTES PERCENT AUTO 4.1 % (0.0-8.0); NEUTROPHILS ABSOLUTE AUTO 4.52 K/uL (1.80-7.70); NEUTROPHILS PERCENT AUTO 60.5 % (41.0-71.0); NRBC ABSOLUTE 0.00 K/uL (0.00-0.02); NRBC PERCENT 0.0 /100WBC (0.0-0.2); PLATELET COUNT,PLT 269 K/uL (150-400); RED BLOOD CELL COUNT 4.83 M/uL (4.10-5.30); WHITE BLOOD CELL COUNT,WBC 7.48 K/uL (3.9-11.3)
[2025-02-25 12:06] LABS: A/G RATIO 1.1 (0.9-1.6); ALANINE AMINOTRANSFERASE,ALT 20.0 IU/L (14-63); ASPARTATE AMNIOTRANSFERASE,AST 10.0 IU/L (15-37); BILIRUBIN TOTAL 0.3 mg/dL (0.2-1.0); BLOOD UREA NITROGEN,BUN 15.0 mg/dL (7.0-18.0); CARBON DIOXIDE,CO2 25.8 mmol/L (21.0-32.0); CHLORIDE,CL 107.0 mmol/L (98-107); CREATININE 0.9 mg/dL (0.6-1.0); EST CRCL DRUG DOSING (CG) 88.68 mL/min; GLUCOSE RANDOM 102.0 mg/dL (74-106); POTASSIUM,K 3.9 mmol/L (3.5-5.1); PROTEIN TOTAL,TP 7.8 g/dL (6.4-8.2); SODIUM,NA 143.0 mmol/L (136-145)
[2025-02-25 12:13] LABS: ESTIMATED GFR 90.0 mL/min (>60)
[2025-02-25] MEDS: Iopamidol 755 Mg/ML 100 ML Bottle IVPUSH ONE (12:39)
[2025-02-25] MEDS: Ketorolac 30 MG/ML SDV IVPUSH ONE (12:59)
== END 2025-02-25 16:02 | disposition home or self-care (01) ==
LOC: MW.ED 11:13
DX: K59.00 Constipation, unspecified (principal); Z88.2 Allergy status to sulfonamides; Z88.8 Allergy status to other drugs, medicaments and biological substances; Z79.899 Other long term (current) drug therapy
CPT/HCPCS: 36415; 74018; 74177; 80053; 83605; 83690; 83735; 85025; 96361; 96374; 99284; J1885; J7030; Q9967

== ENCOUNTER 2025-03-10 19:33 | Emergency (ER) | payer MEDICAID ==
[2025-03-10] MEDS ORDERED: Sodium Chloride 0.9% 10 ML Syringe FLUSH PRN (20:28)
[2025-03-10] MEDS ORDERED: Sodium Chloride 0.9% 2.5 ML Syringe FLUSH PRN (20:28)
== END 2025-03-10 22:25 | disposition home or self-care (01) ==
LOC: MW.ED 19:33
DX: J32.9 Chronic sinusitis, unspecified (principal); H81.10 Benign paroxysmal vertigo, unspecified ear; Z88.2 Allergy status to sulfonamides; Z79.899 Other long term (current) drug therapy
CPT/HCPCS: 87428-QW; 99284; A9270-GY